=== PATIENT | female | born 1940 | race Caucasian/White ===

== ENCOUNTER 2021-10-07 22:00 | Emergency (ER) | payer MEDICARE, BC, SELFPAY ==
[2021-10-07 22:12] VITALS: BP 112/85; PULSE 131; RESP 16; TEMP 35.8; O2SAT 94; BMI 30.6
--- NOTE | 2021-10-07 22:26 | CRLHL7_ITS ---
For Patients: As a result of the Century Cures Act, medical imaging exams and procedure reports are released immediately into your electronic medical record. You may view this report before your referring provider. If you have questions, please contact your health care provider. INDICATION: Trauma, fall, on blood thinners. TECHNIQUE: CT head without contrast. COMPARISON: CT head dated 08/02/2021. FINDINGS: Cerebral parenchyma: No evidence of acute territorial infarct. No acute intraparenchymal hemorrhage. No significant mass effect/midline shift. Normal monroy-white matter differentiation. Extra-axial spaces: No extra-axial collection or hemorrhage. Ventricles: Unremarkable. Calvarium: Small left frontal scalp hematoma. No underlying skull fracture. Visualized paranasal sinuses/mastoid air cells: Mild mucosal opacification of the right anterior ethmoid air cells. Posterior fossa: No cerebellar tonsillar herniation. Visualized orbits: No acute abnormality. IMPRESSION: 1. No evidence of acute intracranial hemorrhage. 2. Small left frontal scalp hematoma. Please note that all CT scans at this facility use dose modulation, iterative reconstruction, and/or weight-based dosing when appropriate to reduce radiation dose to as low as reasonably achievable. Dictated by Lavinia Leary MD @ 10/08/2021 12:05:57 AM (Electronically Signed)
--- NOTE | 2021-10-07 22:32 | CRLHL7_ITS ---
For Patients: As a result of the Century Cures Act, medical imaging exams and procedure reports are released immediately into your electronic medical record. You may view this report before your referring provider. If you have questions, please contact your health care provider. INDICATION: Trauma, fall. Left-sided rib pain. TECHNIQUE: CT chest without IV contrast. COMPARISON: None. FINDINGS: Lungs and pleura: Extensive left basilar atelectasis. No evidence of pulmonary contusion, laceration, or pneumothorax. Scattered subcentimeter pulmonary nodules, for example a 0.4 cm nodule in the left upper lobe (series 3, image 24). Mild septal thickening in the bilateral upper lobes, favored to reflect component of chronic fibrotic changes. Heart and vasculature: Cardiomegaly. Dilation of the bilateral main pulmonary arteries. Atherosclerotic coronary artery calcifications. Thyroid and lower neck: Thyroid gland is either absent or atrophic. Mediastinum/ismael: No pathologically enlarged lymph node Chest wall: No axillary lymphadenopathy. Postsurgical changes of left mastectomy. Upper abdomen: Post cholecystectomy. Multiple left renal cysts. Partially visualized ventral abdominal wall hernia. Large hiatal hernia Bones: No acute displaced left rib fracture identified. Multilevel degenerative changes of the spine. IMPRESSION: 1. No acute displaced left rib fracture identified. 2. No evidence of pulmonary contusion, laceration, or pneumothorax. 3. Scattered subcentimeter pulmonary nodules measuring up to 0.4 cm in the left upper lobe. Mild septal thickening in the bilateral upper lobes, favored to reflect a component of chronic fibrotic changes. Recommend follow CT chest in 3-6 months. 4. Cardiomegaly. Dilation of the main pulmonary arteries, likely reflective of pulmonary arterial hypertension. 5. Additional incidental findings in the upper abdomen. Please note that all CT scans at this facility use dose modulation, iterative reconstruction, and/or weight-based dosing when appropriate to reduce radiation dose to as low as reasonably achievable. Dictated by Lavinia Leary MD @ 10/08/2021 12:17:19 AM (Electronically Signed)
[2021-10-07 23:00] VITALS: BP 124/82; PULSE 112; RESP 18; O2SAT 95
[2021-10-07] MEDS: ACETAMINOPHEN 500 MG TABLET 1000 MG PO (23:14)
[2021-10-07 23:30] VITALS: BP 118/78; PULSE 106; RESP 18; O2SAT 93
--- NOTE | 2021-10-07 23:45 | ED.GENADULT ---
HPI - General Adult General Chief complaint: Fall/Minor Trauma <Manuel Venegas MD - Last Filed: 10/07/21 23:49> Stated complaint: Fell and hit head on blood thiners <Manuel Venegas MD - Last Filed: 10/07/21 23:49> Time Seen by Provider: 10/07/21 22:26 <Manuel Venegas MD - Last Filed: 10/07/21 23:49> History of Present Illness HPI narrative: Patient is a 80-year-old woman who stumbled at home tonight falling landing on her forehead and left side of her chest. Her pain is localized to these 2 areas. She did not lose consciousness. She has had no seizure activities and has been cognitively normal since the accident. She is on anticoagulants and was brought in for further evaluation. She states her pain is only mild. She is able to ambulate without any difficulty. <Manuel Venegas MD - Last Filed: 10/07/21 23:49> Related Data Home medications: Home Medications Medication Instructions Recorded Confirmed atorvastatin 40 mg tablet 40 mg PO DAILY 10/07/21 10/07/21 fluticasone propionate 50 1 spray intranasal PRN 10/07/21 mcg/actuation nasal spray,suspension furosemide 40 mg tablet 40 mg PO DAILY 10/07/21 10/07/21 isosorbide mononitrate 30 mg 30 mg PO DAILY 10/07/21 10/07/21 tablet,extended release 24 hr levothyroxine 100 mcg tablet 100 mcg PO DAILY 10/07/21 10/07/21 metformin 750 mg tablet,extended 750 mg PO DAILY 10/07/21 10/07/21 release 24 hr metoprolol succinate 25 mg 25 mg PO DAILY 10/07/21 10/07/21 tablet,extended release 24 hr potassium chloride 10 mEq 10 meq PO DAILY 10/07/21 10/07/21 capsule,extended release pregabalin 150 mg capsule 150 mg PO DAILY 10/07/21 10/07/21 rivaroxaban 20 mg tablet (Xarelto) 20 mg PO DAILY 10/07/21 10/07/21 <Manuel Venegas MD - Last Filed: 10/07/21 23:49> Allergies/adverse reactions: Allergies Allergy/AdvReac Type Severity Reaction Status Date / Time Sulfa (Sulfonamide Allergy Unknown Verified 10/07/21 22:29 Antibiotics) <Manuel Venegas MD - Last Filed: 10/07/21 23:49> Review of Systems Status of ROS: Reports: 10 or more systems reviewed and unremarkable except as noted in History and below <Manuel Venegas MD - Last Filed: 10/07/21 23:49> [facility] Medical History: Medical History Afib Breast cancer DVT (deep venous thrombosis) Hypothyroidism Kidney stones Type 2 diabetes mellitus <Manuel Venegas MD - Last Filed: 10/07/21 23:49> Surgical History: Surgical History H/O ileostomy <Manuel Venegas MD - Last Filed: 10/07/21 23:49> Social History: Social History Smoking Status: Former smoker Second hand tobacco smoke exposure: No How often do you have a drink containing alcohol: 2-4 times a month How many standard drinks containing alcohol do you have on a typical day: 1 or 2 How often do you have six or more drinks on one occasion: Never AUDIT-C Alcohol total score: 2 Non-prescribed substance use: denies use <Manuel Venegas MD - Last Filed: 10/07/21 23:49> Exam Narrative: Exam Narrative: EXAM GENERAL: Patient appears comfortable and well. Contusion noted on the right side of her forehead. EYES: No scleral icterus. THYROID: no thyroid nodules or thyromegaly. LYMPH: No supraclavicular or cervical lymphadenopathy. SKIN: Visible skin seen during exam normal or with benign process only. EXT: No dependent lower extremity pedal edema. HEART: Irregularly irregular. LUNGS: Clear to auscultation bilaterally with no crackles or wheezes. ABD: Soft, non tender, non distended. PSYCH: Good eye contact, speech is not pressured. <Manuel Venegas MD - Last Filed: 10/07/21 23:49> Const: Vital Signs, click to edit/add: Vital Signs - 24 hr 10/07/21 22:12 Temperature 96.5 F L Pulse Rate [Left P ulse Oximeter] 131 H Respiratory Rate 16 Blood Pressure [Le ft Upper Arm] 112/85 Pulse Oximetry 94 Oxygen Delivery Me thod Room Air <Manuel Venegas MD - Last Filed: 10/07/21 23:49> Vital Signs, click to edit/add: Vital Signs - 24 hr 10/07/21 22:12 Temperature 96.5 F L Pulse Rate [Left P ulse Oximeter] 131 H Respiratory Rate 16 Blood Pressure [Le ft Upper Arm] 112/85 Pulse Oximetry 94 Oxygen Delivery Me thod Room Air <Taj Turpin MD - Last Filed: 10/08/21 00:54> Course Course Hospital Course: Patient appears to be medically stable. CT of the head and chest ordered. <Manuel Venegas MD - Last Filed: 10/07/21 23:49> Reevaluation(s) Reevaluation #1: I assumed care of this patient from Dr. Venegas. CT of her head and chest were unremarkable. She is feeling well enough for discharge. Pain is not severe. No shortness of breath. <Taj Turpin MD - Last Filed: 10/08/21 00:54> Vital Signs Vital signs: Initial Vital Signs Temperature 96.5 F L 10/07/21 22:12 Temperature Source Temporal Artery Scan 10/07/21 22:12 Pulse Rate 131 H 10/07/21 22:12 Pulse Rhythm 10/07/21 22:12 Respiratory Rate 16 10/07/21 22:12 Blood Pressure 112/85 10/07/21 22:12 Blood Pressure Mean 94 10/07/21 22:12 Blood Pressure Position Supine 10/07/21 22:12 Pulse Oximetry 94 10/07/21 22:12 Oxygen Delivery Method 10/07/21 22:12 Vital Signs Temperature 96.5 F L 10/07/21 22:12 Pulse Rate 131 H 10/07/21 22:12 Respiratory Rate 16 10/07/21 22:12 Blood Pressure 112/85 10/07/21 22:12 Pulse Oximetry 94 10/07/21 22:12 Oxygen Delivery Method 10/07/21 22:12 Temperature 96.5 F L 10/07/21 22:12 Pulse Rate 131 H 08/09/22 22:12 Respiratory Rate 16 10/07/21 22:12 Blood Pressure 112/85 10/07/21 22:12 Pulse Oximetry 94 10/07/21 22:12 Oxygen Delivery Method 10/07/21 22:12 <Manuel Venegas MD - Last Filed: 10/07/21 23:49> Initial Vital Signs Temperature 96.5 F L 10/07/21 22:12 Temperature Source Temporal Artery Scan 10/07/21 22:12 Pulse Rate 131 H 10/07/21 22:12 Pulse Rhythm 10/07/21 22:12 Respiratory Rate 16 10/07/21 22:12 Blood Pressure 112/85 10/07/21 22:12 Blood Pressure Mean 94 10/07/21 22:12 Blood Pressure Position Supine 10/07/21 22:12 Pulse Oximetry 94 10/07/21 22:12 Oxygen Delivery Method 10/07/21 22:12 Vital Signs Temperature 96.5 F L 10/07/21 22:12 Pulse Rate 131 H 10/07/21 22:12 Respiratory Rate 16 10/07/21 22:12 Blood Pressure 112/85 10/07/21 22:12 Pulse Oximetry 94 10/07/21 22:12 Oxygen Delivery Method 10/07/21 22:12 Temperature 96.5 F L 10/07/21 22:12 Pulse Rate 131 H 10/07/21 22:12 Respiratory Rate 16 10/07/21 22:12 Blood Pressure 112/85 10/07/21 22:12 Pulse Oximetry 94 10/07/21 22:12 Oxygen Delivery Method 10/07/21 22:12 <Taj Turpin MD - Last Filed: 10/08/21 00:54> Discharge Plan Discharge Clinical Impression: Contusion of rib on left side, Fall, Contusion of head <Manuel Venegas MD - Last Filed: 10/07/21 23:49> Patient Disposition: Home, Self-Care <Manuel Venegas MD - Last Filed: 10/07/21 23:49> Condition: Stable <Manuel Venegas MD - Last Filed: 10/07/21 23:49> Additional Instructions: Ice, Tylenol 100 mg every 6 hours as needed. Follow up if not improving. <Manuel Venegas MD - Last Filed: 10/07/21 23:49> Prescriptions: No Action Xarelto 20 mg tablet 20 mg PO DAILY pregabalin 150 mg capsule 150 mg PO DAILY potassium chloride 10 mEq capsule, extended release 10 meq PO DAILY metoprolol succinate 25 mg tablet extended release 24 hr 25 mg PO DAILY metformin 750 mg tablet extended release 24 hr 750 mg PO DAILY levothyroxine 100 mcg tablet 100 mcg PO DAILY isosorbide mononitrate 30 mg tablet extended release 24 hr 30 mg PO DAILY furosemide 40 mg tablet 40 mg PO DAILY fluticasone propionate 50 mcg/actuation spray,suspension 1 spray INTRANASAL PRN atorvastatin 40 mg tablet 40 mg PO DAILY <Manuel Venegas MD - Last Filed: 10/07/21 23:49> Follow Up/Referrals: Wilfredo Tracey MD [Primary Care Provider] - <Manuel Venegas MD - Last Filed: 10/07/21 23:49> [facility] <Manuel Venegas MD - Last Filed: 10/07/21 23:49>
[2021-10-08] VITALS: BP 116/80; PULSE 102; RESP 18; O2SAT 94
--- NOTE | 2021-11-24 16:17 | ED.NURSE ---
Entered chart to provide discharge time and date as requested by patient.
== END 2021-10-08 01:02 | disposition home or self-care (01) ==
PROVIDERS: Emergency Provider Internal Medicine; PCP Family Medicine
DX: S20.212A Contusion of left front wall of thorax, initial encounter (principal); S00.93XA Contusion of unspecified part of head, initial encounter; W01.0XXA Fall on same level from slipping, tripping and stumbling without subsequent striking against object, initial encounter
CPT/HCPCS: 70450; 71250; 99283; 99284; A9270

== ENCOUNTER 2021-12-22 13:45 | Outpatient (RCR) | payer MEDICARE, BC, SELFPAY | END 2021-12-22 14:43 | disposition home or self-care (01) | PROVIDERS: PCP Family Medicine; Visit Provider Family Medicine | DX: R26.81 Unsteadiness on feet (principal); Z51.89 Encounter for other specified aftercare | CPT/HCPCS: 97110; 97112; 97116; 97162 ==

== ENCOUNTER 2022-02-12 10:15 | Outpatient (RCR) | payer MEDICARE, BC, SELFPAY | END 2022-04-22 13:44 | disposition home or self-care (01) | PROVIDERS: PCP Family Medicine; Visit Provider Physician Assistant | DX: M25.511 Pain in right shoulder (principal); Z51.89 Encounter for other specified aftercare | CPT/HCPCS: 97110; 97162 ==

== ENCOUNTER 2022-06-08 08:33 | Outpatient (CLI) | payer MEDICARE, BC, SELFPAY ==
--- NOTE | 2022-06-08 09:21 | W.ANESCHARGE ---
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
--- NOTE | 2022-06-08 10:15 | W.ANESCHARGE ---
Anesthesia Charges Start Date/Time Anesthesia Start Date: 06/08/22 Anesthesia Start Time: 09:52 Stop Date/Time Anesthesia Stop Date: 06/08/22 Anesthesia Stop Time: 10:10
== END 2022-06-08 08:34 | disposition home or self-care (01) ==
LOC: OP CLINIC 08:35
PROVIDERS: PCP Family Medicine; Visit Provider Internal Medicine Gastroenterology
DX: D50.9 Iron deficiency anemia, unspecified (principal); K21.01 Gastro-esophageal reflux disease with esophagitis, with bleeding; K44.9 Diaphragmatic hernia without obstruction or gangrene; K31.89 Other diseases of stomach and duodenum
CPT/HCPCS: 00731; 43239; 88305; 99100; J2704